=== PATIENT | male | born 1950 | race Caucasian/White ===

== ENCOUNTER 2021-10-07 12:04 | Emergency (ER) | payer OTHER, MEDICARE ==
[2021-10-07] MEDS ORDERED: Sodium Chloride 0.9% 10 ML Syringe FLUSH PRN (12:54)
--- NOTE | 2021-10-07 12:58 | EDM.PDOC ---
ED HPI GENERAL MEDICAL PROBLEM - General Chief Complaint: Abdominal Pain Stated Complaint: diarrhea, lower left abdominal pain Time Seen by Provider: 10/07/21 12:19 Source of Information: Reports: Patient History Limitations: Reports: No Limitations - History of Present Illness INITIAL COMMENTS - FREE TEXT/NARRATIVE: One month history on/off right lower quadrant pain. Comes/goes. No specific triggers. Laying flat in bed can help. Intermittent loose stools. Non-bloody. No fevers. Chilled feeling at times. No nausea/emesis. Has decreased appetite and lost around 10-12 pounds. Mild cough this morning. Is smoker. Decreased activity last month due to not feeling well. No urinary changes/retention/hematuria. No other reported changes. - Related Data Allergies Allergy/AdvReac Type Severity Reaction Status Date / Time No Known Allergies Allergy Verified 10/07/21 12:12 Home Meds: Home Meds Ibuprofen 400 mg PO Q6HR PRN 10/31/14 [History] Rosuvastatin [Crestor] 40 mg PO DAILY 10/31/14 [History] Metoprolol Succinate [Toprol XL] 25 mg PO DAILY #30 tab.er 11/03/14 [Rx] Finasteride 1 tab PO DAILY 10/07/21 [History] Rivaroxaban [Xarelto] 1 tab PO DAILY 10/07/21 [History] Past Medical History Cardiovascular History: Reports: Afib, High Cholesterol, Hypertension Musculoskeletal History: Reports: Osteoarthritis Endocrine/Metabolic History: Reports: Obesity/BMI 30+ Social & Family History - Tobacco Use Tobacco Use Status *Q: Current Every Day Tobacco User Years of Tobacco use: 50 Packs/Tins Daily: 0.5 Used Tobacco, but Quit: No Second Hand Smoke Exposure: No - Caffeine Use Caffeine Use: Reports: Coffee - Alcohol Use Days Per Week of Alcohol Use: 7 Number of Drinks Per Day: 1 Total Drinks Per Week: 7 - Recreational Drug Use Recreational Drug Use: No - Living Situation & Occupation Living situation: Reports: Occupation: Retired ED ROS GENERAL - Review of Systems Review Of Systems: Comprehensive ROS is negative, except as noted in HPI. ED EXAM, GENERAL - Physical Exam Exam: See Below Exam Limited By: No Limitations General Appearance: Alert, No Apparent Distress Eye Exam: Bilateral Eye: EOMI, PERRL Ears: Hearing Grossly Normal Nose: No: Nasal Deformity, Nasal Swelling, Nasal Drainage Throat/Mouth: Normal Lips, Normal Voice, No Airway Compromise Head: Atraumatic, Normocephalic Neck: Supple Respiratory/Chest: No Respiratory Distress, Lungs Clear, Normal Breath Sounds, No Accessory Muscle Use, Chest Non-Tender Cardiovascular: Regular Rate, Rhythm, No Murmur GI/Abdominal: Normal Bowel Sounds, Soft, Tender (RLQ). No: Guarding, Rigid, Rebound (Male) Exam: Deferred Rectal (Males) Exam: Deferred Back Exam: No: CVA Tenderness (L), CVA Tenderness (R), Muscle Spasm, Paraspinal Tenderness, Vertebral Tenderness Extremities: Non-Tender, Normal Capillary Refill Neurological: Alert, Oriented, Normal Cognition, Normal Gait, No Motor/Sensory Deficits Psychiatric: Normal Affect, Normal Mood Skin Exam: Warm, Dry, Intact, Normal Color Course - Vital Signs Last Recorded V/S: Last Vital Signs Temp 37.6 C 10/07/21 16:00 Pulse 111 H 10/07/21 16:00 Resp 20 10/07/21 16:00 BP 127/69 10/07/21 16:00 Pulse Ox 98 10/07/21 16:00 - Orders/Labs/Meds Orders: Active Orders 24 hr Category Date Time Status Abdomen Pelvis w Cont [CT] Stat Exams 10/07/21 12:55 Taken Sodium Chloride 0.9% [Saline Flush] Med 10/07/21 12:54 Active 10 ml FLUSH ASDIRECTED PRN metroNIDAZOLE/Normal Saline [Flagyl in NS 500 MG/100 ML Med 10/07/21 15:35 Active ] 500 mg Premix Bag 1 bag IV ONETIME Saline Lock Insert [OM.PC] Routine Oth 10/07/21 12:54 Ordered Medication Orders Metronidazole 500 mg/ Premix 100 mls @ 100 mls/hr IV ONETIME ONE Stop: 10/07/21 16:34 Last Admin: 10/07/21 15:50 Dose: 100 mls/hr Documented by: PATRICIA Sodium Chloride (Sodium Chloride 0.9% 10 Ml Syringe) 10 ml FLUSH ASDIRECTED PRN PRN Reason: Keep Vein Open Last Admin: 10/07/21 13:18 Dose: 10 ml Documented by: PATRICIA Labs: Laboratory Tests 10/07/21 10/07/21 10/07/21 Range/Units 12:05 13:08 13:08 WBC 18.4 H (4.0-10.2) K/uL RBC 4.14 L (4.33-5.41) M/uL Hgb 12.5 L D (13.1-16.8) g/dL Hct 37.5 L (39.0-49.0) % MCV 90.6 (84.0-98.0) fL MCH 30.2 (28.2-33.3) pg MCHC 33.3 (31.7-36.0) g/dL RDW 14.6 H (11.2-14.1) % Plt Count 294 D (150-350) K/uL Neut % (Auto) 82.5 H (45.0-80.0) % Lymph % (Auto) 6.7 L (10.0-50.0) % [place] % (Auto) 10.5 (2.0-14.0) % Eos % (Auto) 0.0 (0.0-5.0) % Baso % (Auto) 0.3 (0.0-2.0) % Neut # (Auto) 15.22 H (1.40-7.00) K/uL Lymph # (Auto) 1.24 (0.50-3.50) K/uL [place] # (Auto) 1.93 H (0.00-1.00) K/uL Eos # (Auto) 0.00 (0.00-0.50) K/uL Baso # (Auto) 0.05 (0.00-0.20) K/uL Sodium 136 (136-145) mmol/L Potassium 4.1 (3.5-5.1) mmol/L Chloride 100 (98-107) mmol/L Carbon Dioxide 22.2 (21.0-32.0) mmol/L Anion Gap 13.8 (7-15) meq/L BUN 18 (7-18) mg/dL Creatinine 1.24 H (0.51-1.17) mg/dL Est Cr Clr Drug Dosing TNP Estimated GFR (MDRD) 57 mL/min Glucose 119 H (70-99) mg/dL Lactic Acid (0.4-2.0) mmol/L Calcium 8.8 (8.5-10.1) mg/dL Magnesium 1.9 (1.8-2.4) mg/dL Total Bilirubin 0.9 (0.2-1.0) mg/dL AST 83 H (15-37) U/L ALT 113 H (12-78) U/L Alkaline Phosphatase 151 H (46-116) IU/L NT-Pro-B Natriuret Pep 2923 H (0-125) pg/mL Total Protein 7.2 (6.4-8.2) g/dL Albumin 2.8 L (3.4-5.0) g/dL Amylase (25-115) U/L Lipase (73-393) U/L Specimen Type Urine Color Urine Appearance Urine pH (5.0-9.0) Ur Specific [place] (1.005-1.030) Urine Protein (NEGATIVE) mg/dL Urine Glucose (UA) (NEGATIVE) mg/dL Urine Ketones (NEGATIVE) mg/dL Urine Occult Blood (NEGATIVE) Urine Nitrite (NEGATIVE) Urine Bilirubin (NEGATIVE) Urine Urobilinogen (0.2-1.0) E.U./dL Ur Leukocyte Esterase (NEGATIVE) Urine RBC /HPF Urine WBC /HPF Ur Epithelial Cells /LPF Urine Bacteria (NONE TO FEW) /HPF SARS-CoV-2 RNA (TIANNA) Negative (NEGATIVE) 10/07/21 10/07/21 10/07/21 Range/Units 13:08 13:08 15:37 WBC (4.0-10.2) K/uL RBC (4.33-5.41) M/uL Hgb (13.1-16.8) g/dL Hct (39.0-49.0) % MCV (84.0-98.0) fL MCH (28.2-33.3) pg MCHC (31.7-36.0) g/dL RDW (11.2-14.1) % Plt Count (150-350) K/uL Neut % (Auto) (45.0-80.0) % Lymph % (Auto) (10.0-50.0) % [place] % (Auto) (2.0-14.0) % Eos % (Auto) (0.0-5.0) % Baso % (Auto) (0.0-2.0) % Neut # (Auto) (1.40-7.00) K/uL Lymph # (Auto) (0.50-3.50) K/uL [place] # (Auto) (0.00-1.00) K/uL Eos # (Auto) (0.00-0.50) K/uL Baso # (Auto) (0.00-0.20) K/uL Sodium (136-145) mmol/L Potassium (3.5-5.1) mmol/L Chloride (98-107) mmol/L Carbon Dioxide (21.0-32.0) mmol/L Anion Gap (7-15) meq/L BUN (7-18) mg/dL Creatinine (0.51-1.17) mg/dL Est Cr Clr Drug Dosing Estimated GFR (MDRD) mL/min Glucose (70-99) mg/dL Lactic Acid 0.6 (0.4-2.0) mmol/L Calcium (8.5-10.1) mg/dL Magnesium (1.8-2.4) mg/dL Total Bilirubin (0.2-1.0) mg/dL AST (15-37) U/L ALT (12-78) U/L Alkaline Phosphatase (46-116) IU/L NT-Pro-B Natriuret Pep (0-125) pg/mL Total Protein (6.4-8.2) g/dL Albumin (3.4-5.0) g/dL Amylase 36 (25-115) U/L Lipase 59 L (73-393) U/L Specimen Type Urinvoid Urine Color Dark yellow Urine Appearance Clear Urine pH 5.0 (5.0-9.0) Ur Specific [place] 1.015 (1.005-1.030) Urine Protein Negative (NEGATIVE) mg/dL Urine Glucose (UA) Negative (NEGATIVE) mg/dL Urine Ketones Negative (NEGATIVE) mg/dL Urine Occult Blood Trace-lysed H (NEGATIVE) Urine Nitrite Negative (NEGATIVE) Urine Bilirubin Negative (NEGATIVE) Urine Urobilinogen 0.2 (0.2-1.0) E.U./dL Ur Leukocyte Esterase Negative (NEGATIVE) Urine RBC 0-5 /HPF Urine WBC 5-10 H /HPF Ur Epithelial Cells Few /LPF Urine Bacteria Rare (NONE TO FEW) /HPF SARS-CoV-2 RNA (TIANNA) (NEGATIVE) Meds: Medications Generic Name Dose Route Start Last Admin Trade Name Freq PRN Reason Stop Dose Admin Metronidazole 500 mg/ Premix 100 mls @ 100 mls/hr 10/07/21 15:35 10/07/21 15:50 IV 10/07/21 16:34 100 mls/hr ONETIME ONE Administration Sodium Chloride 10 ml 10/07/21 12:54 10/07/21 13:18 Sodium Chloride 0.9% 10 Ml Syringe FLUSH 10 ml ASDIRECTED PRN Administration Keep Vein Open Discontinued Medications Generic Name Dose Route Start Last Admin Trade Name Freq PRN Reason Stop Dose Admin Sodium Chloride 1,000 mls @ 500 mls/hr 10/07/21 13:14 10/07/21 13:18 Normal Saline IV 10/07/21 15:13 500 mls/hr .BOLUS ONE Administration Ceftriaxone Sodium 1 gm/ 100 mls @ 200 mls/hr 10/07/21 15:34 10/07/21 15:50 Sodium Chloride IV 10/07/21 16:03 200 mls/hr ONETIME ONE Administration Iopamidol 100 ml 10/07/21 13:03 10/07/21 14:33 Iopamidol 612 Mg/Ml 100 Ml Bottle IVPUSH 10/07/21 13:04 100 ml ONETIME ONE Administration - Re-Assessments/Exams Free Text/Narrative Re-Assessment/Exam: 10/07/21 15:10 CT report received at 15:05 Patient noted to have 10cm abscess RLQ behind cecum/Radiology suspects ruptured appendicitis. Call placed to [facility] for transfer. Currently waiting for them to see if their surgeon wants patient transferred to their facility or have him sent to [facility] or [facility]. 10/07/21 15:35 [facility] declined patient transfer. Call placed to [facility] and patient accepted for transfer by /Surgery department. Will initiate Rocephin and Flagyl per 's preference. Awaiting bed placement. Departure - Departure Time of Disposition: 16:21 Disposition: DC/Tfer to Acute Hospital 02 Condition: Good Clinical Impression: Ruptured appendix, Intra-abdominal abscess - Discharge Information *PRESCRIPTION DRUG MONITORING PROGRAM REVIEWED*: Not Applicable *COPY OF PRESCRIPTION DRUG MONITORING REPORT IN PATIENT SHASHI: Not Applicable Referrals: PCP,Unknown [Family Provider] - Forms: ED Department Discharge Sepsis Event Note (ED) - Evaluation Sepsis Screening Result: No Definite Risk - Focused Exam Vital Signs: Vital Signs Temp Pulse Resp BP Pulse Ox 11/15/21 16:00 37.6 C 111 H 20 127/69 98 10/07/21 15:30 106 H 18 109/61 98 10/07/21 15:00 109 H 19 112/72 98 10/07/21 14:30 105 H 20 101/57 L 98 10/07/21 14:00 102 H 20 105/59 L 97 10/07/21 13:30 92 20 94/56 L 97 10/07/21 12:50 96 19 97/57 L 95 10/07/21 12:35 70 18 92/54 L 97 10/07/21 12:18 37.4 C 65 22 H 94/50 L 96 - My Orders Last 24 Hours: My Active Orders 10/07/21 12:54 Sodium Chloride 0.9% [Saline Flush] 10 ml FLUSH ASDIRECTED PRN Saline Lock Insert [OM.PC] Routine 10/07/21 12:55 Abdomen Pelvis w Cont [CT] Stat 10/07/21 15:35 metroNIDAZOLE/Normal Saline [Flagyl in NS 500 MG/100 ML] 500 mg Premix Bag 1 bag IV ONETIME - Assessment/Plan Last 24 Hours: My Active Orders 10/07/21 12:54 Sodium Chloride 0.9% [Saline Flush] 10 ml FLUSH ASDIRECTED PRN Saline Lock Insert [OM.PC] Routine 10/07/21 12:55 Abdomen Pelvis w Cont [CT] Stat 10/07/21 15:35 metroNIDAZOLE/Normal Saline [Flagyl in NS 500 MG/100 ML] 500 mg Premix Bag 1 bag IV ONETIME
[2021-10-07] MEDS ORDERED: Iopamidol 612 MG/ML 100 ML Bottle IVPUSH ONE (13:03)
[2021-10-07] MEDS ORDERED: Sodium Chloride 0.9% 1,000 ML IV ONE (13:14)
[2021-10-07 13:40] LABS: ANION GAP 13.8 meq/L (7-15); CHLORIDE,CL 100 mmol/L (98-107); SODIUM,NA 136 mmol/L (136-145)
[2021-10-07] MEDS ORDERED: cefTRIAXone 1 GM in Sodium Chloride 0.9% 100 ML IV ONE (15:34)
[2021-10-07] MEDS ORDERED: metroNIDAZOLE/Normal Saline 500 MG in Premix Bag 1 BAG IV ONE (15:35)
[2021-10-07 16:11] VITALS: BP 127/69; PULSE 111
== END 2021-10-07 16:55 ==
LOC: LL.ED 12:04
DX: K35.33 Acute appendicitis with perforation, localized peritonitis, and gangrene, with abscess (principal); I48.91 Unspecified atrial fibrillation; E78.00 Pure hypercholesterolemia, unspecified; I10 Essential (primary) hypertension; E66.9 Obesity, unspecified; Z68.30 Body mass index [BMI] 30.0-30.9, adult; Z72.0 Tobacco use; Z20.822 Contact with and (suspected) exposure to COVID-19
CPT/HCPCS: 36415; 74177; 80053; 81001; 82150; 83605; 83690; 83735; 83880; 85025; 96365; 96367; 99284; 99285-25; J0696; J3490; J7030; Q9967; U0002

== ENCOUNTER 2023-02-08 10:30 | Emergency (ER) | payer OTHER, MEDICARE ==
[2023-02-08] MEDS: Ketorolac 30 MG/ML SDV IM ONE (12:19)
[2023-02-08 13:40] VITALS: BP 142/79; PULSE 87
== END 2023-02-08 12:47 | disposition home or self-care (01) ==
LOC: LL.ED 10:30
DX: S93.402A Sprain of unspecified ligament of left ankle, initial encounter (principal); I48.91 Unspecified atrial fibrillation; E78.00 Pure hypercholesterolemia, unspecified; I10 Essential (primary) hypertension; E66.9 Obesity, unspecified; Z68.30 Body mass index [BMI] 30.0-30.9, adult; Z87.891 Personal history of nicotine dependence; Z79.01 Long term (current) use of anticoagulants; W18.09XA Striking against other object with subsequent fall, initial encounter
CPT/HCPCS: 73610-LT; 96372; 99283; J1885